=== PATIENT | female | born 1935 | race Caucasian/White ===

== ENCOUNTER 2016-09-14 12:53 | Outpatient (CLI) | payer MEDICARE | END 2016-09-14 12:54 | disposition home or self-care (01) | DX: E78.5 Hyperlipidemia, unspecified (principal); D75.89 Other specified diseases of blood and blood-forming organs ==

== ENCOUNTER 2016-09-25 08:47 | Emergency (ER) | payer MEDICARE | END 2016-09-25 10:52 | disposition home or self-care (01) | DX: R07.89 Other chest pain (principal); H53.8 Other visual disturbances; R03.0 Elevated blood-pressure reading, without diagnosis of hypertension; Z79.82 Long term (current) use of aspirin ==

== ENCOUNTER 2016-09-26 17:02 | Emergency (ER) | payer MEDICARE | END 2016-09-26 19:22 | disposition home or self-care (01) | DX: H53.8 Other visual disturbances (principal); R07.9 Chest pain, unspecified; R11.0 Nausea ==

== ENCOUNTER 2016-10-20 10:15 | Outpatient (CLI) | payer MEDICARE | END 2016-10-20 10:16 | disposition home or self-care (01) | DX: Z12.31 Encounter for screening mammogram for malignant neoplasm of breast (principal); Z85.3 Personal history of malignant neoplasm of breast ==

== ENCOUNTER 2016-12-19 09:25 | Outpatient (CLI) | payer MEDICARE ==
--- NOTE | 2016-12-19 16:01 | MRI Report ---
EXAM: MRI BRAIN WITHOUT CONTRAST EXAM DATE: 12/19/2016 10:47 AM. CLINICAL HISTORY: BLURRED VISION, HEADACHE. Prior history of breast cancer. COMPARISON: CT head 09/26/2016, MRI brain 03/09/2016 TECHNIQUE: Multiplanar, multisequence T1-weighted and fluid-sensitive MR sequences of the brain were performed. Sequences optimized for routine evaluation. Other: None. IV Contrast: None. FINDINGS: Brain Volume: Moderate diffuse cerebral and cerebellar volume loss with ex vacuo dilatation of the ve ntricles and sulci, appropriate for age. Parenchyma/Dura: No masses, infarcts, or hemorrhage. Extensive, semi-confluent T2/FLAIR hyperintense white matter lesions within periventricular, deep, and subcortical white matter of bilateral cerebral hemispheres as well as centrally within the jaylyn, overall similar to the prior study from 03/09/2016 . No parenchymal microhemorrhages. Ventricles/Cisterns: Moderate ex vacuo dilatation. No hydrocephalus. Sinuses: Normal. No sinusitis evident. Bones: Normal. Other: Status post bilateral lens replacement surgeries. The visualized orbits otherwise unremarkable . IMPRESSION: 1. No evidence of acute or subacute infarct, intracranial hemorrhage, mass, midline shift, or hydroce phalus. 2. Extensive, semi-confluent T2/FLAIR hyperintense white matter lesions within periventricular, deep, and subcortical white matter of bilateral cerebral hemispheres as well as centrally within the jaylyn, overall similar to the prior study from 03/09/2016. While nonspecific, this likely represents sequel a of chronic microangiopathy. 3. Moderate diffuse cerebral and cerebellar volume loss with ex vacuo dilatation of the ventricles an d sulci, appropriate for age. [facility] Referring Provider Line: [phone] SITE ID: [id number]
== END 2016-12-19 09:26 | disposition home or self-care (01) ==
LOC: DI 09:25
PROVIDERS: ATTEND Family Medicine
DX: R51 Headache (principal); H53.8 Other visual disturbances
CPT/HCPCS: 70551

== ENCOUNTER 2017-05-12 12:56 | Outpatient (CLI) | payer MEDICARE ==
[2017-05-12 12:42] LABS: BASOPHILS % (AUTO) 1.2 %; EOSINOPHILS # (AUTO) 0.1 10^3/uL (0.0-0.7); HCT - HEMATOCRIT 38.7 % (37.0-47.0); HGB - HEMOGLOBIN 13.4 g/dL (12.0-16.0); LYMPHOCYTES # (AUTO) 1.4 10^3/uL (1.5-3.5); LYMPHOCYTES % (AUTO) 38.1 %; MEAN CORPUSCULAR HEMOGLOBIN 34.9 pg (27.0-31.0); MEAN CORPUSCULAR HGB CONC 34.6 g/dL (32.0-36.0); MEAN CORPUSCULAR VOLUME 100.9 fL (81.0-99.0); MEAN PLATELET VOLUME 7.6 fL (7.9-10.8); MONOCYTES # (AUTO) 0.3 10^3/uL (0.0-1.0); NEUTROPHILS # (AUTO) 1.8 10^3/uL (1.5-6.6); NEUTROPHILS % (AUTO) 47.7 %; NUCLEATED RED BLOOD CELLS AUTO 0.1 /100WBC; RED BLOOD COUNT 3.83 10^6/uL (4.20-5.40); RED CELL DISTRIBUTION WIDTH 13.1 % (12.0-15.0); UNCORRECTED WHITE BLOOD COUNT 3.7 x10^3/uL; WHITE BLOOD COUNT 3.7 x10^3/uL (4.8-10.8)
[2017-05-12 13:04] LABS: ALBUMIN/GLOBULIN RATIO 1.4 (1.0-2.2); BILIRUBIN,TOTAL 0.7 mg/dL (0.2-1.0); CALCIUM 8.8 mg/dL (8.5-10.3); CREATININE 0.7 mg/dL (0.4-1.0); POTASSIUM 3.7 mmol/L (3.5-5.0); TOTAL PROTEIN 6.5 g/dL (6.7-8.2)
== END 2017-05-12 12:57 | disposition home or self-care (01) ==
LOC: LAB.WCP 12:56
PROVIDERS: ATTEND Family Medicine
DX: H53.8 Other visual disturbances (principal); R07.9 Chest pain, unspecified; I10 Essential (primary) hypertension
CPT/HCPCS: 36415; 80053; 85025

== ENCOUNTER 2017-06-08 09:20 | Outpatient (CLI) | payer MEDICARE ==
[~2017-06-08 09:20] MED LIST: GADOBUTROL 7.5 MMOL/7.5 ML VIAL ONE
[2017-06-08] MEDS ORDERED: GADOBUTROL 7.5 MMOL/7.5 ML VIAL IVP ONE (10:07)
--- NOTE | 2017-06-08 18:06 | MRI Preliminary Report ---
Exam: MRI BRAIN W/WO IMPRESSION: 1.Interval increase in thickness of a subdural fluid collection bilaterally 2. The subdural fluid collections could be posttraumatic in nature; however, the presence of smooth d ural thickening, decreased size of the lateral ventricles, and a lower limits normal distance between the mamillary bodies and upper jaylyn raise the possibility of intracranial hypotension as an etiology . 3. No enhancing mass is identified to suggest a breast cancer metastasis. 4. Foci of susceptibility are seen in the left parietal lobe. Given the history of subarachnoid hemor rhage this could reflect the sequelae of prior trauma. 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 5. Small vessel ischemic change is seen throughout the cerebral hemisphere white matter and in the ce ntral jaylyn. Preliminary report phoned to the ordering physician [facility] SITE ID: [id number]
--- NOTE | 2017-06-08 18:23 | MRI Report ---
EXAM: MRI BRAIN WITHOUT AND WITH CONTRAST EXAM DATE: 06/08/2017 09:25 AM. CLINICAL HISTORY: Subarachnoid hemorrhage. Right leg numbness since a stroke. History of breast cance r COMPARISON: CT head 05/24/2017. MRI brain 12/19/2016. TECHNIQUE: Multiplanar, multisequence T1-weighted and fluid-sensitive MR sequences of the brain were performed. Sequences optimized for routine evaluation. Other: None. IV Contrast: 5 mL Gadavist. FINDINGS: There is a FLAIR hyperintense subdural fluid collection overlying the left frontal lobe, which measur es up to 10 mm in thickness. A small component extends over these superior left temporal lobe. There is a FLAIR hyperintense subdural fluid collection overlying most of the frontal and parietal lobe on the right measuring up to 10 mm in thickness. On the comparison study, the right subdural fluid colle ction measured up to 5 mm in thickness and the left up to 6 mm in thickness. Ventricles are decreased in size. The distance between the superior jaylyn and mamillary body measures 5.[address] udy and is decreased. Subcortical and deep white matter FLAIR hyperintensities throughout the cerebral hemisphere white mat ter and FLAIR hyperintense signal in the central jaylyn are stable. Expected flow voids are seen in the major intracranial vessels at the skull base. A small amount of gyriform susceptibility is seen posteriorly in the left parietal cortex. A small fo cus of magnetic susceptibility is seen in the subcortical white matter of the medial left parietal lo be. No enhancing mass is identified in the brain parenchyma. Cavernous sinuses enhance in symmetric fashion. There is smooth dural thickening overlying the suprat entorial brain and involving the infratentorial brain as well. Expected enhancement is seen in the major dural venous sinuses. IMPRESSION: 1.Interval increase in a subdural fluid collection bilaterally. 2. The subdural fluid collections could be posttraumatic in nature; however, the presence of smooth d ural thickening, decreased size of the lateral ventricles, and a lower limits normal distance between the mamillary bodies and upper jaylyn raise the possibility of intracranial hypotension as an etiology . 3. No enhancing mass is identified to suggest a breast cancer metastasis. 4. Susceptibility is seen involving the left parietal lobe. Given the history of subarachnoid hemorrh age, this could reflect the sequelae of prior trauma. Cerebral amyloid angiopathy is in the different ial. 5. Small vessel ischemic change is seen throughout the cerebral hemisphere white matter and in the ce ntral jaylyn. Preliminary report phoned to the ordering physician. [facility] Referring Provider Line: [phone] SITE ID: [id number]
== END 2017-06-08 09:21 | disposition home or self-care (01) ==
LOC: DI 09:20 → EDUNIT# 09:20 → DI 09:21
PROVIDERS: ATTEND Family Medicine
DX: I62.9 Nontraumatic intracranial hemorrhage, unspecified (principal); I67.82 Cerebral ischemia
CPT/HCPCS: 70553; A9585

== ENCOUNTER 2017-10-12 08:23 | Outpatient (CLI) | payer MEDICARE ==
[2017-10-12 09:09] LABS: CALCIUM 9.2 mg/dL (8.5-10.3); CREATININE 0.7 mg/dL (0.4-1.0)
--- NOTE | 2017-10-12 14:40 | MRI Report ---
EXAM: MRI LUMBAR SPINE WITHOUT CONTRAST EXAM DATE: 10/12/2017 09:43 AM. CLINICAL HISTORY: Chronic low back pain, urinary incontinence. COMPARISON: Radiographs 11/04/2016. TECHNIQUE: Multiplanar, multisequence T1-weighted and fluid-sensitive sequences of the lumbar spine f rom T12 to S1 without contrast. Other: None. FINDINGS: Spinal Cord: The conus terminates at L1. The conus medullaris and cauda equina are unremarkable. Alignment: Prominent thoracolumbar curvature convex left and lower lumbar curvature convex right. Mil d right lateral subluxation T12 on L1. Left lateral subluxation L2 on L3. 2 mm anterior subluxation L 3 on L4. Bone Marrow: Five gui-wxr-tcykgum lumbar vertebral bodies are assumed. Heterogenous marrow signal. No acute fracture. No destructive bone lesion. Disk Levels/Facets: T12-L1: Small paracentral protrusions. Mild facet arthropathy. No significant stenosis. L1-L2: Annular disk bulge with broad-based central protrusion. Moderate facet arthropathy. No signifi cant stenosis. L2-L3: Disk height loss and dehydration. Annular disk bulge. Moderate degenerative facet arthropathy with ligamentum flavum buckling. Mild central canal stenosis. Mild left foraminal stenosis. L3-L4: Disk height loss. Annular disk old with broad-based central and left paracentral disk protrusi on. Minimal grade 1 spondylolisthesis. Moderate facet arthropathy. Mild central canal stenosis. Left lateral recess stenosis. Mild left foraminal stenosis. L4-L5: Disk height loss and dehydration. Annular disk bulge. Broad-based left foraminal disk protrusi on. Moderate degenerative facet arthropathy. Mild left foraminal stenosis. L5-S1: Disk height loss. Annular disk bulge and moderate facet arthropathy without significant stenos is. Musculature: Mild atrophy of the lower paraspinous musculature. Other: Unremarkable. IMPRESSION: 1. Multilevel lumbar degenerative disk and facet arthropathy. 2. L2-L3 mild central canal stenosis and mild left foraminal stenosis. 3. L3-L4 mild central canal stenosis. Mild left foraminal stenosis. 4. L4-L5 mild left foraminal stenosis. Comment: The following findings are so common in adults without low back pain that while we report th eir presence, they must be interpreted with caution and in the context of the clinical situation. (Re ene Rockwell et al, Spine 2001) Prevalence of findings in patients without low back pain: Disk degeneration (any evidence): 92% Disk desiccation/T2 signal loss: 83% Disk height loss: 56% Disk bulge: 64% Disk protrusion: 32% Annular tear/high intensity zone: 38% [facility] Referring Provider Line: [phone] SITE ID: [id number]
== END 2017-10-12 08:24 | disposition home or self-care (01) ==
LOC: DI 08:23
PROVIDERS: ATTEND Physician Assistant Medical
DX: M51.26 Other intervertebral disc displacement, lumbar region (principal); M51.36 Other intervertebral disc degeneration, lumbar region; M47.896 Other spondylosis, lumbar region; M51.37 Other intervertebral disc degeneration, lumbosacral region; M47.897 Other spondylosis, lumbosacral region; M43.16 Spondylolisthesis, lumbar region
CPT/HCPCS: 36415; 72148; 80048

== ENCOUNTER 2017-10-18 08:32 | Outpatient (CLI) | payer MEDICARE ==
[2017-10-18] MEDS ORDERED: GADOBUTROL 7.5 MMOL/7.5 ML VIAL IVP ONE (09:20)
--- NOTE | 2017-10-18 11:46 | MRI Report ---
EXAM: MRI BRAIN WITHOUT AND WITH CONTRAST EXAM DATE: 10/18/2017 09:23 AM. CLINICAL HISTORY: Intracranial hemorrhage follow-up. COMPARISON: 06/08/2017. TECHNIQUE: Multiplanar, multisequence T1-weighted and fluid-sensitive MR sequences of the brain were performed. Sequences optimized for routine evaluation. Other: None. IV Contrast: Yes. FINDINGS: Persistent but smaller broad-based subdural fluid collection over the left anterior cerebral convexit y, overall volume is significantly reduced, maximal width now 4 millimeters where previously 11 mm by the same method of measurement. Persistent but significantly smaller subdural fluid collection over the right cerebral convexity, now up to 5 mm in width over the right parietal lobe where previously the width is about 8 mm by the fredrick e method of measurement. Essentially complete interval clearing of interhemispheric fissure fluid/blood seen previously. There are findings of chronic hemosiderin staining on the surface of the left parietal lobe. No evidence for new or acute intracranial hemorrhage. Diffusion hyperintensity is present within the remaining subdural collections, this is likely from re sidual blood products. Infection is less likely. No evidence for new abnormal intracranial enhancement. Minimal dural thickening and enhancement is pr obably reactive secondary to resolving presumed subdural hematomas. No developing intracranial enhancing tumor mass. Contrast opacification of the major dural venous sin uses is present as expected. No evidence for acute intraparenchymal hemorrhage or acute ischemic infarct. Stable generalized age-related changes including extensive white matter disease that is likely second lissett to chronic microangiopathy. No developing hydrocephalus. No midline shift or brain herniation. The major arterial skull base flow voids are present. Symmetric unremarkable appearing orbits. IMPRESSION: 1. No MRI evidence for new or acute intracranial abnormality. 2. Persistent but significantly smaller bilateral cerebral convexity fluid collections consistent wit h sequelae of previous subdural hemorrhage. 3. Posterior interhemispheric fissure blood/fluid seen previously has cleared. [facility] Referring Provider Line: [phone] SITE ID: [id number]
== END 2017-10-18 08:33 | disposition home or self-care (01) ==
LOC: DI 08:32
PROVIDERS: ATTEND Physician Assistant Medical
DX: I62.9 Nontraumatic intracranial hemorrhage, unspecified (principal)
CPT/HCPCS: 70553; A9585

== ENCOUNTER 2018-01-14 07:03 | Outpatient (CLI) | payer MEDICARE ==
[2018-01-14 12:57] LABS: BASOPHILS % (AUTO) 1.3 %; EOSINOPHILS # (AUTO) 0.1 10^3/uL (0.0-0.7); EOSINOPHILS % (AUTO) 3.9 %; LYMPHOCYTES # (AUTO) 1.5 10^3/uL (1.5-3.5); LYMPHOCYTES % (AUTO) 42.3 %; MEAN CORPUSCULAR HEMOGLOBIN 35.3 pg (27.0-31.0); MEAN CORPUSCULAR HGB CONC 33.8 g/dL (32.0-36.0); MEAN CORPUSCULAR VOLUME 104.4 fL (81.0-99.0); MEAN PLATELET VOLUME 7.6 fL (7.9-10.8); MONOCYTES # (AUTO) 0.4 10^3/uL (0.0-1.0); MONOCYTES % (AUTO) 11.9 %; NEUTROPHILS # (AUTO) 1.4 10^3/uL (1.5-6.6); NEUTROPHILS % (AUTO) 40.6 %; PLT - PLATELET COUNT 222 10^3/uL (130-450); RED BLOOD COUNT 3.96 10^6/uL (4.20-5.40); RED CELL DISTRIBUTION WIDTH 13.3 % (12.0-15.0); WHITE BLOOD COUNT 3.4 x10^3/uL (4.8-10.8)
[2018-01-14 13:41] LABS: ALBUMIN 3.9 g/dL (3.2-5.5); ALBUMIN/GLOBULIN RATIO 1.3 (1.0-2.2); ALKALINE PHOSPHATASE 46 IU/L (42-121); ALT ALANINE AMINOTRANSFERASE 19 IU/L (10-60); AST ASPARTATE AMINOTRANSFERASE 23 IU/L (10-42); BILIRUBIN,TOTAL 0.9 mg/dL (0.2-1.0); BUN - BLOOD UREA NITROGEN 15 mg/dL (6-20); CALCIUM 8.9 mg/dL (8.5-10.3); CARBON DIOXIDE - CO2 28 mmol/L (21-32); CHLORIDE 101 mmol/L (101-111); CHOL/HDL RATIO 3.1 (<4.4); CHOLESTEROL 194 mg/dL; CREATININE 0.6 mg/dL (0.4-1.0); GFR - MDRD 96 (>89); GLUCOSE 96 mg/dL (70-100); HDL CHOLESTEROL 63 mg/dL; LDL CHOLESTEROL,CALCULATED 106 mg/dL; LDL/HDL RATIO 1.7 (<4.4); SODIUM 136 mmol/L (135-145); VLDL CHOLESTEROL 25 mg/dL
[2018-01-14 13:53] LABS: THYROID STIMULATING HORMONE 2.49 uIU/mL (0.34-5.60)
== END 2018-01-14 07:04 | disposition home or self-care (01) ==
LOC: LAB.WCP 07:03
PROVIDERS: ATTEND Physician Assistant Medical
DX: E78.5 Hyperlipidemia, unspecified (principal); R53.83 Other fatigue; M19.049 Primary osteoarthritis, unspecified hand
CPT/HCPCS: 36415; 80053; 80061; 82306; 82607; 83721; 84443; 85025

== ENCOUNTER 2018-03-25 10:52 | Outpatient (CLI) | payer MEDICARE ==
--- NOTE | 2018-03-29 10:09 | Mammography Report ---
Reason: SCREENING MAMMO Procedure Date: 03/25/2018 Accession Number: [id number] / [id number] Procedure: MGN - Screening Mammo Dig Bilat CPT Code: FULL RESULT: EXAM: Screening Mammo Dig Bilat DATE: 03/25/2018 11:15 AM CLINICAL HISTORY: Personal history of right breast cancer status post lumpectomy and radiation therapy, history of benign left breast biopsy, for screening TECHNIQUE: Bilateral CC and MLO views were obtained. COMPARISON: 10/20/2016, 09/23/2015, 08/08/2014 and 06/29/2013. FINDINGS: There are scattered fibroglandular densities. Posttreatment changes right breast are stable. No suspicious masses, clustered microcalcifications, or regions of architectural distortion are identified. IMPRESSION: Benign findings RECOMMENDATION: Routine annual screening unless otherwise clinically indicated. BIRADS CATEGORY 2: Benign findings STANDARD QUALIFYING STATEMENTS: 1. This examination was reviewed with the aid of Computer-Aided Detection (CAD). 2. A negative or benign imaging report should not delay biopsy if clinically suspicious findings are present. Consider surgical consultation if warrented. More than 5% of cancers are not identified by imaging. 3. Dense breasts may obscure an underlying neoplasm.
== END 2018-03-25 10:53 | disposition home or self-care (01) ==
LOC: DI.N 10:52
PROVIDERS: ATTEND Physician Assistant Medical
DX: Z12.31 Encounter for screening mammogram for malignant neoplasm of breast (principal); Z85.3 Personal history of malignant neoplasm of breast
CPT/HCPCS: 77067

== ENCOUNTER 2018-11-21 10:35 | Emergency (ER) | payer MEDICARE ==
--- NOTE | 2018-11-21 11:08 | ED Physician Documentation ---
PD HPI FOCAL NEURO - Stated complaint Stated Complaint: RIGHT SIDE PX UP TO HEAD - Chief complaint Chief Complaint: Neuro - History obtained from History obtained from: Patient, Family () - History of Present Illness Timing - onset: How many months ago (Progressing over several months.) Timing - details: Gradual onset Severity of deficit: Moderate Numbness: Face, Arm, Leg, Right Contributing factors: positive: Other (H/O ICH 1 1/2 years ago.) Baseline status: positive: A&OX3, ambulatory, indep - Additional information Additional information: Patient is an 82-year-old female who complains of progressive numbness on her right side. She has had numbness in her right leg for the past year and a half since an intracranial hemorrhage that occurred from a fall. Over the past 2 or 3 months the numbness has increased to involve her right upper extremity, with waxing and waning of severity. Yesterday she developed right facial numbness, which was new for her. She denies any focal weakness. She denies headache, nausea or vomiting, fever, or visual disturbance. She does report chronic right hip pain from degenerative joint disease, and is scheduled for orthopedic evaluation. Review of Systems Constitutional: denies: Fever Eyes: denies: Decreased vision Ears: denies: Tinnitus/ringing Nose: denies: Congestion Throat: denies: Sore throat Cardiac: denies: Chest pain / pressure Respiratory: denies: Dyspnea, Cough GI: denies: Abdominal Pain, Nausea, Vomiting : denies: Dysuria Skin: denies: Rash Musculoskeletal: reports: Joint pain (Right hip). denies: Neck pain, Back pain Neurologic: reports: Numbness (right side). denies: Focal weakness, Headache PD PAST MEDICAL HISTORY - Past Medical History Neuro: Other (intracranial hemorrhage) - Past Surgical History HEENT: Tonsil/Adenoidectomy - Present Medications Home Medications: Ambulatory Orders Medication Instructions Recorded Confirmed Venlafaxine [Effexor] 2 tab PO DAILY 09/25/16 05/24/17 clonazePAM [Clonazepam] 1 mg PO DAILY 09/25/16 05/24/17 - Allergies Allergies/Adverse Reactions: Allergies Allergy/AdvReac Type Severity Reaction Status Date / Time cephalexin monohydrate * Allergy Rash Verified 09/25/16 08:56 [From Keflex] - Social History Does the pt smoke?: No Smoking Status: Never smoker Does the pt drink ETOH?: Yes Does the pt have substance abuse?: No - Immunizations Immunizations are current?: Yes PD ED PE NORMAL - Vitals Vital signs reviewed: Yes (hypertensive) - General General: Alert and oriented X 3, Well developed/nourished - HEENT HEENT: Atraumatic, PERRL, EOMI, Pharynx benign - Neck Neck: Supple, no meningeal sign, No adenopathy, No JVD - Cardiac Cardiac: RRR - Respiratory Respiratory: No respiratory distress, Clear bilaterally - Abdomen Abdomen: Soft, Non tender - Back Back: No CVA TTP - Derm Derm: No rash - Extremities Extremities: No edema, No calf tenderness / cord - Neuro Neuro: Alert and oriented X 3, No motor deficit, Other (Decreased light touch sensation on the right lower extremity compared to the left. There is no sensory deficit detected on the right upper extremity or the face.) Results - Vitals Vitals: Vital Signs - 24 hr 11/21/18 11/21/18 11/21/18 10:38 10:54 11:16 Temperature 36.6 C Heart Rate 67 Respiratory 16 18 18 Rate Blood Pressure 165/91 H O2 Saturation 99 11/21/18 11/21/18 11/21/18 11:25 11:34 12:03 Temperature Heart Rate 61 68 64 Respiratory 11 L 16 13 Rate Blood Pressure 158/96 H 161/97 H O2 Saturation 100 97 100 11/21/18 11/21/18 12:32 13:52 Temperature Heart Rate 68 67 Respiratory 16 22 Rate Blood Pressure O2 Saturation 100 100 Oxygen O2 Source Room air - Labs Labs: Laboratory Tests 11/21/18 11/21/18 11/21/18 11:10 11:13 11:13 WBC 5.8 RBC 4.12 L Hgb 14.5 Hct 42.9 MCV 104.1 H MCH 35.1 H MCHC 33.8 RDW 12.9 Plt Count 274 MPV 7.2 L Neut # (Auto) 3.7 Lymph # (Auto) 1.5 Reeves # (Auto) 0.5 Eos # (Auto) 0.1 Baso # (Auto) 0.1 Absolute Nucleated RBC 0.00 Nucleated RBC % 0.0 Sodium 141 Potassium 4.0 Chloride 101 Carbon Dioxide 28 Anion Gap 12.0 BUN 17 Creatinine 0.6 Estimated GFR (MDRD) 96 Glucose 102 H Calcium 9.5 Total Bilirubin 0.9 AST 25 ALT 18 Alkaline Phosphatase 51 Total Protein 7.8 Albumin 4.5 Globulin 3.3 Albumin/Globulin Ratio 1.4 Lipase 27 Urine Color YELLOW Urine Clarity CLEAR Urine pH 6.5 Ur Specific [place] <=1.005 Urine Protein NEGATIVE Urine Glucose (UA) NEGATIVE Urine Ketones NEGATIVE Urine Occult Blood NEGATIVE Urine Nitrite NEGATIVE Urine Bilirubin NEGATIVE Urine Urobilinogen 0.2 (NORMAL) Ur Leukocyte Esterase NEGATIVE Ur Microscopic Review NOT INDICATED Urine Culture Comments NOT INDICATED - Rads (name of study) Head CT Radiology: Prelim report reviewed, EMP read contemporaneously, See rad report (1) No acute intracranial abnormality is identified. 2) Parenchymal volume loss and chronic white matter changes. 3) Slight progression of ventricular enlargement compared to 05/24/2017.) PD MEDICAL DECISION MAKING - ED course Complexity details: reviewed old records, reviewed results, re-evaluated patient, considered differential, d/w patient, d/w family ED course: The patient's presentation is significant for right sided paresthesias of chronic duration, but recently waxing and waning. She has history of int racranial hemorrhage 1 1/[address] today does not reveal any new intracranial abnormality. Her presentation does not suggest ischemic stroke. I discussed the results of the head CT with her and her . She has follow- up appointment scheduled with her primary physician 2 days from now. I discussed with her potentially worrisome signs or symptoms that should prompt reevaluation in the emergency department. Departure - Departure Disposition: 01 Home, Self Care Clinical Impression: Numbness on right side, History of intracranial hemorrhage Condition: Stable Instructions: ED Paraesthesias Follow-Up: Afshin Mcelroy MD [Provider Admit Priv/Credential] - Comments: Follow-up with Dr. Mcelroy in 2 days as scheduled. Return to the emergency department if increasing numbness or weakness, or otherwise worsening symptoms. Discharge Date/Time: 11/21/18 13:54
[2018-11-21 11:21] LABS: BASOPHILS # (AUTO) 0.1 10^3/uL (0.0-0.1); BASOPHILS % (AUTO) 0.9 %; EOSINOPHILS # (AUTO) 0.1 10^3/uL (0.0-0.7); HGB - HEMOGLOBIN 14.5 g/dL (12.0-16.0); LYMPHOCYTES # (AUTO) 1.5 10^3/uL (1.5-3.5); LYMPHOCYTES % (AUTO) 25.5 %; MEAN CORPUSCULAR HEMOGLOBIN 35.1 pg (27.0-31.0); MEAN CORPUSCULAR HGB CONC 33.8 g/dL (32.0-36.0); MEAN CORPUSCULAR VOLUME 104.1 fL (81.0-99.0); MEAN PLATELET VOLUME 7.2 fL (7.9-10.8); MONOCYTES # (AUTO) 0.5 10^3/uL (0.0-1.0); MONOCYTES % (AUTO) 8.7 %; NEUTROPHILS # (AUTO) 3.7 10^3/uL (1.5-6.6); NEUTROPHILS % (AUTO) 62.9 %; PLT - PLATELET COUNT 274 10^3/uL (130-450); RED BLOOD COUNT 4.12 10^6/uL (4.20-5.40); RED CELL DISTRIBUTION WIDTH 12.9 % (12.0-15.0); WHITE BLOOD COUNT 5.8 x10^3/uL (4.8-10.8)
[2018-11-21 11:22] LABS: BILIRUBIN,URINE NEGATIVE (NEGATIVE); GLUCOSE, URINE (UA) NEGATIVE (NEGATIVE); KETONES,URINE (UA) NEGATIVE (NEGATIVE); LEUKOCYTE ESTERASE, URINE NEGATIVE (NEGATIVE); NITRITE,URINE NEGATIVE (NEGATIVE); OCCULT BLOOD,URINE NEGATIVE (NEGATIVE); PH,URINE 6.5 PH (5.0-7.5); PROTEIN,URINE NEGATIVE (NEGATIVE); UROBILINOGEN,URINE 0.2 (NORMAL) E.U./dL (NORMAL)
[2018-11-21 11:23] LABS: CLARITY,URINE CLEAR (CLEAR)
[2018-11-21 11:34] LABS: ALBUMIN 4.5 g/dL (3.2-5.5); ALBUMIN/GLOBULIN RATIO 1.4 (1.0-2.2); BILIRUBIN,TOTAL 0.9 mg/dL (0.2-1.0); CALCIUM 9.5 mg/dL (8.5-10.3); CREATININE 0.6 mg/dL (0.4-1.0); TOTAL PROTEIN 7.8 g/dL (6.7-8.2)
[2018-11-21 11:35] VITALS: BP 161/97
--- NOTE | 2018-11-21 12:05 | CT Report ---
Reason: right sided numbness, progressing over several wks Procedure Date: 11/21/2018 Accession Number: [id number] / [id number] Procedure: CT - HEAD WO CPT Code: FULL RESULT: EXAM: CT HEAD EXAM DATE: 11/21/2018 11:59 AM. CLINICAL HISTORY: Right sided numbness, progressing over several wks. COMPARISON: HEAD W/O 05/24/2017 10:59 AM. TECHNIQUE: Multiaxial CT images were obtained from the foramen magnum to the vertex. Reformats: Sagittal and coronal. IV contrast: None. In accordance with CT protocol optimization, one or more of the following dose reduction techniques were utilized for this exam: automated exposure control, adjustment of mA and/or KV based on patient size, or use of iterative reconstructive technique. FINDINGS: Parenchyma: Parenchymal volume loss with periventricular regions of low attenuation. No definitive evidence of an acute vascular insult or acute parenchymal hemorrhage. No midline shift. No mass-effect. Extraaxial Spaces: Extra-axial spaces are prominent. No subdural or epidural collections identified. Ventricles: Prominent with progression compared to 05/24/2017. Sinuses and Orbits: Imaged paranasal sinuses, orbits, and mastoids show no significant abnormality. Bones: No evidence of fracture or calvarial defect. Other: Changes are seen from bilateral lens surgery. Vascular calcifications are noted. IMPRESSION: 1. No acute intracranial abnormality is identified. 2. Parenchymal volume loss and chronic white matter changes. 3. Slight progression of ventricular enlargement compared to 05/24/2017. [facility]
== END 2018-11-21 13:54 | disposition home or self-care (01) ==
LOC: ED 10:35
DX: R20.0 Anesthesia of skin (principal); Z86.79 Personal history of other diseases of the circulatory system; Z91.81 History of falling
CPT/HCPCS: 36415; 70450; 80053; 81001; 81003; 83690; 85025; 87086; 99283

== ENCOUNTER 2018-12-01 09:27 | Outpatient (CLI) | payer MEDICARE ==
[2018-12-01 11:16] LABS: HEMOGLOBIN A1C 0.51 g/dL; HEMOGLOBIN A1C % 5.5 % (4.6-6.2)
== END 2018-12-01 09:28 | disposition home or self-care (01) ==
LOC: LAB 09:27
PROVIDERS: ATTEND Orthopaedic Surgery
DX: Z01.818 Encounter for other preprocedural examination (principal); Z01.812 Encounter for preprocedural laboratory examination; N39.9 Disorder of urinary system, unspecified; R73.9 Hyperglycemia, unspecified
CPT/HCPCS: 36415; 83036; 93005

== ENCOUNTER 2020-01-30 10:15 | Emergency (ER) | payer MEDICARE ==
--- NOTE | 2020-01-30 11:17 | XRAY Report ---
PROCEDURE: Elbow 2 View LT INDICATIONS: injury to left elbow TECHNIQUE: 2 views of the elbow were acquired. COMPARISON: None FINDINGS: Bones: No fractures or dislocations. No suspicious bony lesions. Soft tissues: No elbow joint effusion. No suspicious soft tissue calcifications. IMPRESSION: No fracture. No osseous lesion. If there is continued clinical concern for pathology, then repeat juan in film radiographs (7-10 days) or advanced imaging (CT, MR, bone scan) should be considered for furt her evaluation. Reviewed by: Keyonna Escalante MD, PhD on 01/30/2020 11:15 AM PDT Approved by: Keyonna Escalante MD, PhD on 01/30/2020 11:15 AM PDT Station ID: [id number]
[2020-01-30] MEDS ORDERED: BACITRACIN ZINC OINT 1 PACKET TOP STA (11:30)
--- NOTE | 2020-01-30 11:38 | ED Physician Documentation ---
PD HPI UPPER EXT INJURY - Stated complaint Stated Complaint: LT ELBOW LAC - Chief complaint Chief Complaint: Laceration - History obtained from History obtained from: Patient - History of Present Illness Location: Left, Elbow Type of injury: Fall Where injury occurred: Home Timing - onset: Yesterday Timing - duration: Days (1) Timing - details: Gradual onset Pain level max: 1 Pain level now: 1 Improved by: Rest Worsened by: Moving, Palpating Associated symptoms: No: Weakness, Numbness, Tingling, Swelling Recently seen: Not recently seen - Additonal information Additional information: Small laceration of the left elbow after a fall yesterday. No bleeding today. Tetanus up-to-date Review of Systems Constitutional: denies: Fever, Chills Respiratory: denies: Cough GI: denies: Vomiting, Diarrhea Skin: denies: Rash Musculoskeletal: denies: Neck pain, Back pain Neurologic: denies: Focal weakness, Numbness, Headache PD PAST MEDICAL HISTORY - Past Medical History Past Medical History: Yes Neuro: Other - Past Surgical History Past Surgical History: Yes Ortho: Hip replacement HEENT: Tonsil/Adenoidectomy - Present Medications Home Medications: Ambulatory Orders Medication Instructions Recorded Confirmed Venlafaxine [Effexor] 2 tab PO DAILY 09/25/16 05/24/17 clonazePAM [Clonazepam] 1 mg PO DAILY 09/25/16 05/24/17 Bacitracin Zinc Oint 1 applic TOP BID #1 tube 01/30/20 - Allergies Allergies/Adverse Reactions: Allergies Allergy/AdvReac Type Severity Reaction Status Date / Time cephalexin monohydrate * Allergy Rash Verified 09/25/16 08:56 [From Keflex] - Social History Does the pt smoke?: No Smoking Status: Never smoker Does the pt drink ETOH?: Yes ETOH Use: Wine Does the pt have substance abuse?: No - Immunizations Immunizations are current?: Yes PD ED PE NORMAL - Vitals Vital signs reviewed: Yes - General General: Alert and oriented X 3, No acute distress - HEENT HEENT: Atraumatic, PERRL, Moist mucous membranes - Neck Neck: Supple, no meningeal sign - Cardiac Cardiac: RRR - Respiratory Respiratory: No respiratory distress, Clear bilaterally - Derm Derm: Warm and dry - Extremities Extremities: Other (L elbow - mild Tender to palpation over the olecranon process. 3 x 3 mm skin avulsion. Down to the fascia. Neurovascular intact.) - Neuro Neuro: Alert and oriented X 3 - Psych Psych: Normal mood, Normal affect Results - Vitals Vitals: Vital Signs - 24 hr 01/30/20 01/30/20 10:30 11:54 Temperature 36.3 C L 36.9 C Heart Rate 70 69 Respiratory 16 14 Rate Blood Pressure 122/73 123/75 O2 Saturation 98 100 Oxygen O2 Source Room air - Rads (name of study) L elbow xray Radiology: Prelim report reviewed, EMP read contemporaneously, See rad report (no acute abnormality) PD MEDICAL DECISION MAKING - ED course Complexity details: reviewed results, re-evaluated patient, considered differential, d/w patient ED course: No acute patient with a small skin avulsion to the left elbow. No acute findings on x-ray. Wound was cleansed and bandaged. Will allow to heal by secondary intention. Patient counseled regarding signs and symptoms for which I believe and urgent re-evaluation would be necessary. Patient with good understanding of and agreement to plan and is comfortable going home at this time This document was made in part using voice recognition software. While efforts are made to proofread this document, sound alike and grammatical errors may occur. Departure - Departure Disposition: 01 Home, Self Care Clinical Impression: Laceration of left elbow Qualifiers: Encounter type: initial encounter Qualified Code(s): S51.012A - Laceration without foreign body of left elbow, initial encounter Left elbow contusion Qualifiers: Encounter type: initial encounter Qualified Code(s): S50.02XA - Contusion of left elbow, initial encounter Condition: Good Instructions: ED Laceration All Follow-Up: Leopoldo Dangelo MD [Primary Care Provider] - Within 1 week Prescriptions: Bacitracin Zinc Oint 1 applic TOP BID #1 tube Comments: Keep the wound clean. Return if you worsen. Follow-up with your doctor this week for a wound check. Your x-ray does not show any abnormalities today. Discharge Date/Time: 01/30/20 11:55
[2020-01-30 11:55] VITALS: BP 123/75
== END 2020-01-30 11:55 | disposition home or self-care (01) ==
LOC: ED 10:15
DX: S51.012A Laceration without foreign body of left elbow, initial encounter (principal); S50.02XA Contusion of left elbow, initial encounter; W18.30XA Fall on same level, unspecified, initial encounter
CPT/HCPCS: 73070; 99283; 99284; A9270

== ENCOUNTER 2020-06-21 10:11 | Outpatient (CLI) | payer MEDICARE ==
[2020-06-21 10:44] LABS: BASOPHILS # (AUTO) 0.1 10^3/uL (0.0-0.1); BASOPHILS % (AUTO) 1.5 %; EOSINOPHILS # (AUTO) 0.1 10^3/uL (0.0-0.7); HGB - HEMOGLOBIN 13.2 g/dL (12.0-16.0); LYMPHOCYTES # (AUTO) 1.5 10^3/uL (1.5-3.5); LYMPHOCYTES % (AUTO) 31.4 %; MEAN CORPUSCULAR HEMOGLOBIN 35.1 pg (27.0-31.0); MEAN CORPUSCULAR VOLUME 106.4 fL (81.0-99.0); MEAN PLATELET VOLUME 9.1 fL (7.9-10.8); MONOCYTES # (AUTO) 0.5 10^3/uL (0.0-1.0); MONOCYTES % (AUTO) 11.4 %; NEUTROPHILS # (AUTO) 2.5 10^3/uL (1.5-6.6); NEUTROPHILS % (AUTO) 52.1 %; PLT - PLATELET COUNT 227 10^3/uL (130-450); RED BLOOD COUNT 3.76 10^6/uL (4.20-5.40); RED CELL DISTRIBUTION WIDTH 12.2 % (12.0-15.0); WHITE BLOOD COUNT 4.7 x10^3/uL (4.8-10.8)
[2020-06-21 10:49] LABS: CREATININE 0.5 mg/dL (0.4-1.0)
== END 2020-06-21 10:12 | disposition home or self-care (01) ==
LOC: LAB 10:11
PROVIDERS: ATTEND Orthopaedic Surgery
DX: Z01.818 Encounter for other preprocedural examination (principal); Z01.812 Encounter for preprocedural laboratory examination; I49.1 Atrial premature depolarization
CPT/HCPCS: 36415; 80048; 85025; 93005

== ENCOUNTER 2021-07-03 08:44 | Emergency (ER) | payer MEDICARE ==
[2021-07-03] MEDS ORDERED: SODIUM CHLORIDE 0.9% 1,000 ML IV STA (09:10)
[2021-07-03 09:27] LABS: BASOPHILS # (AUTO) 0.1 10^3/uL (0.0-0.1); BASOPHILS % (AUTO) 0.9 %; EOSINOPHILS # (AUTO) 0.1 10^3/uL (0.0-0.7); EOSINOPHILS % (AUTO) 0.8 %; HCT - HEMATOCRIT 39.1 % (37.0-47.0); HGB - HEMOGLOBIN 13.3 g/dL (12.0-16.0); LYMPHOCYTES # (AUTO) 1.1 10^3/uL (1.5-3.5); LYMPHOCYTES % (AUTO) 16.4 %; MEAN CORPUSCULAR HEMOGLOBIN 34.2 pg (27.0-31.0); MEAN CORPUSCULAR VOLUME 100.5 fL (81.0-99.0); MEAN PLATELET VOLUME 9.1 fL (7.9-10.8); MONOCYTES # (AUTO) 0.5 10^3/uL (0.0-1.0); NEUTROPHILS # (AUTO) 4.9 10^3/uL (1.5-6.6); NEUTROPHILS % (AUTO) 73.6 %; PLT - PLATELET COUNT 252 10^3/uL (130-450); RED BLOOD COUNT 3.89 10^6/uL (4.20-5.40); RED CELL DISTRIBUTION WIDTH 13.6 % (12.0-15.0); WHITE BLOOD COUNT 6.7 x10^3/uL (4.8-10.8)
[2021-07-03 09:44] LABS: ALBUMIN 4.2 g/dL (3.2-5.5); ALBUMIN/GLOBULIN RATIO 1.6 (1.0-2.2); BILIRUBIN,TOTAL 0.9 mg/dL (0.2-1.0); CALCIUM 9.4 mg/dL (8.5-10.3); CREATININE 0.6 mg/dL (0.4-1.0); POTASSIUM 2.9 mmol/L (3.5-5.0); TOTAL PROTEIN 6.9 g/dL (6.7-8.2)
--- NOTE | 2021-07-03 10:00 | ED Physician Documentation ---
History of Present Illness - Stated complaint Stated Complaint: DOES NOT FEEL RIGHT - Chief complaint Chief Complaint: General - History obtained from History obtained from: Patient - Additonal information Additional information: Patient comes emergency department chief complaint of insomnia and "not feeling right". She states that she has a longstanding history of insomnia and usually takes clonazepam at night for this. However, she states she ran out of her clonazepam and so for the last couple of nights, she has not been able to take it. She states she has been up all night and has felt exhausted since after the first night. The patient has had ongoing back and hip pain and 2 days ago, was given an injection by her independent living specialist. She is not sure what the injection was. She states this is helped the pain a lot, but having such a longstanding pain has also left her feeling just worn out. The patient denies any specific symptoms like fever or chills, nausea or vomiting, or dysuria. She has not had any loss of bowel or bladder control. No numbness or weakness in her lower extremities. She denies any chest pain or shortness of breath. No sick contacts. No new medications. No other complaints at this time. Review of Systems Ten Systems: 10 systems reviewed and negative Constitutional: reports: Fatigue Eyes: reports: Reviewed and negative Ears: reports: Reviewed and negative Nose: reports: Reviewed and negative Throat: reports: Reviewed and negative Cardiac: reports: Reviewed and negative Respiratory: reports: Reviewed and negative GI: reports: Reviewed and negative : reports: Reviewed and negative Skin: reports: Reviewed and negative Musculoskeletal: reports: Reviewed and negative Neurologic: reports: Reviewed and negative Psychiatric: reports: Reviewed and negative Endocrine: reports: Reviewed and negative Immunocompromised: reports: Reviewed and negative PD PAST MEDICAL HISTORY - Past Medical History Past Medical History: Yes Neuro: Other Musculoskeletal: Chronic back pain - Past Surgical History Past Surgical History: Yes Ortho: Hip replacement, Spine surgery HEENT: Tonsil/Adenoidectomy - Present Medications Home Medications: Ambulatory Orders Medication Instructions Recorded Confirmed Venlafaxine [Effexor] 2 tab PO DAILY 09/25/16 05/24/17 clonazePAM [Clonazepam] 1 mg PO DAILY 09/25/16 05/24/17 Bacitracin Zinc Oint 1 applic TOP BID #1 tube 01/30/20 Metoprolol Succinate [Toprol Xl] 25 mg PO DAILY #30 tablet 07/03/21 Potassium Chloride [K-Dur] 20 meq PO BIDWM #28 tablet 07/03/21 clonazePAM [Klonopin] 1 mg PO QPM #10 tablet 07/03/21 - Allergies Allergies/Adverse Reactions: Allergies Allergy/AdvReac Type Severity Reaction Status Date / Time cephalexin monohydrate * Allergy Rash Verified 07/03/21 09:00 [From Keflex] - Social History Does the pt smoke?: No Smoking Status: Never smoker Does the pt drink ETOH?: Yes Does the pt have substance abuse?: No - Immunizations Immunizations are current?: Yes PD ED PE NORMAL - Vitals Vital signs reviewed: Yes - General General: Alert and oriented X 3, No acute distress, Well developed/nourished - HEENT HEENT: Atraumatic, PERRL, EOMI, Moist mucous membranes - Neck Neck: Supple, no meningeal sign - Cardiac Cardiac: RRR, No murmur - Respiratory Respiratory: No respiratory distress, Clear bilaterally - Abdomen Abdomen: Soft, Non tender, Non distended - Back Back: No CVA TTP, No spinal TTP - Derm Derm: Normal color, Warm and dry, No rash - Extremities Extremities: No deformity, No edema, No calf tenderness / cord - Neuro Neuro: Alert and oriented X 3, 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, Normal speech - Psych Psych: Normal mood, Normal affect Results - Vitals Vitals: Vital Signs - 24 hr 07/03/21 07/03/21 07/03/21 08:55 11:00 11:05 Temperature 36.2 C L 36.6 C Heart Rate 114 H 112 H 68 Respiratory 16 16 Rate Blood Pressure 112/87 H 176/106 H 139/94 H O2 Saturation 100 98 07/03/21 07/03/21 11:10 11:15 Temperature Heart Rate 62 60 Respiratory 17 15 Rate Blood Pressure 123/86 H 137/80 H O2 Saturation 99 98 Oxygen O2 Source Room air - Labs Labs: Laboratory Tests 07/03/21 07/03/21 07/03/21 09:20 09:20 10:00 WBC 6.7 RBC 3.89 L Hgb 13.3 Hct 39.1 MCV 100.5 H MCH 34.2 H MCHC 34.0 RDW 13.6 Plt Count 252 MPV 9.1 Neut # (Auto) 4.9 Lymph # (Auto) 1.1 L [place] # (Auto) 0.5 Eos # (Auto) 0.1 Baso # (Auto) 0.1 Absolute Nucleated RBC 0.00 Nucleated RBC % 0.0 Sodium 142 Potassium 2.9 L Chloride 104 Carbon Dioxide 28 Anion Gap 10.0 BUN 12 Creatinine 0.6 Estimated GFR (MDRD) 95 Glucose 134 H Calcium 9.4 Total Bilirubin 0.9 AST 22 ALT 18 Alkaline Phosphatase 57 Total Protein 6.9 Albumin 4.2 Globulin 2.7 Albumin/Globulin Ratio 1.6 Lipase 18 L Urine Color STRAW Urine Clarity CLEAR Urine pH 7.0 Ur Specific [place] 1.010 Urine Protein NEGATIVE Urine Glucose (UA) NEGATIVE Urine Ketones NEGATIVE Urine Occult Blood NEGATIVE Urine Nitrite NEGATIVE Urine Bilirubin NEGATIVE Urine Urobilinogen 0.2 (NORMAL) Ur Leukocyte Esterase TRACE H Urine RBC None Seen Urine WBC 0-3 Urine WBC Clumps NONE SEEN Ur Epithelial Cells None Seen Ur Squamous Epith Cells RARE Squamous Urine Bacteria None Seen Ur Microscopic Review INDICATED Urine Culture Comments INDICATED PD MEDICAL DECISION MAKING - ED course Complexity details: reviewed results, re-evaluated patient, considered differential, d/w patient ED course: Patient overall was quite well-appearing, and I suspected that being off her clonazepam, which she is used to taking at night to help her sleep, was the main culprit in her insomnia. Her pain actually had improved since her injection, and she did not have any other symptoms or signs of illness. Her work-up was unremarkable, including labs and urinalysis. The patient was stable for discharge home. I have given her prescription for her clonazepam, so she can take it until her normal meds come in the mail. Departure - Departure Disposition: 01 Home, Self Care Clinical Impression: SVT (supraventricular tachycardia), Hypokalemia Insomnia Qualifiers: Insomnia type: unspecified Qualified Code(s): G47.00 - Insomnia, unspecified Condition: Stable Instructions: ED Potassium Deficiency, ED Tachycardia Pat PSVT, ED Insomnia Prescriptions: Potassium Chloride [K-Dur] 20 meq PO BIDWM #28 tablet clonazePAM [Klonopin] 1 mg PO QPM #10 tablet Metoprolol Succinate [Toprol Xl] 25 mg PO DAILY #30 tablet Comments: Overall, your labs look fairly good, with the exception of a moderately low potassium. Your heart rate has occasionally jumped high, and it appears you are intermittently going into a rhythm called SVT. This is not a dangerous rhythm as long as it is short lived. However, we do not want you to have a very fast heart rhythm for hours on end. Most likely, this is been the cause of the flutters that you have felt from time to time over the years. Often, these sorts of rhythm problems get worse if you have not had enough sleep. We have started you on a low-dose of the medication from the emergency department to help control your heart rhythm a little better. I will also refill your clonazepam so you can hopefully start getting some sleep again and allow everything to settle down and get you feeling back to your usual self. Your potassium was found to be low on your labs today, and this might also be part of the reason for you feeling "off". We have started you on supplements today, and will give you a couple weeks worth of supplements to take at home. You should call and schedule a follow-up appointment with your primary care physician, however, to have your potassium rechecked in about a week and make sure that it is coming up like it should. At that time, you should also discuss with your primary doctor whether you should continue on medicine for your heart rhythm, or whether you should go back to not have any medicine at all for this. Your doctor also may consider putting you back on an event monitor to see how often your heart beating fast, and whether you should see a clinical team manager in follow-up or not. If you go into a fast heartbeat that lasts for more than 30 minutes without stopping, you should return to the emergency department for recheck. You should also return if you experience chest pain, shortness of breath, or fainting in association with the fast heartbeat. Your prescriptions have been electronically transmitted to [facility] in [place].
[2021-07-03 10:20] LABS: BILIRUBIN,URINE NEGATIVE (NEGATIVE); GLUCOSE, URINE (UA) NEGATIVE (NEGATIVE); KETONES,URINE (UA) NEGATIVE (NEGATIVE); LEUKOCYTE ESTERASE, URINE TRACE (NEGATIVE); NITRITE,URINE NEGATIVE (NEGATIVE); OCCULT BLOOD,URINE NEGATIVE (NEGATIVE); PROTEIN,URINE NEGATIVE (NEGATIVE); UROBILINOGEN,URINE 0.2 (NORMAL) E.U./dL (NORMAL)
[2021-07-03] MEDS ORDERED: diltiaZEM INJ 5 MG/ML VIAL IVP STA (10:44)
[2021-07-03] MEDS ORDERED: clonazePAM 0.5 MG TABLET PO STA (10:45)
[2021-07-03] MEDS ORDERED: METOPROLOL 5 MG/5 ML VIAL IVP STA (10:45)
[2021-07-03 10:53] LABS: CLARITY,URINE CLEAR (CLEAR)
[2021-07-03 10:54] LABS: WBC,URINE 0-3 /HPF (0-5)
[2021-07-03 10:55] LABS: BACTERIA,URINE None Seen /HPF (None Seen); EPITHELIAL CELLS,UR None Seen /HPF (<= Few); RBC,URINE None Seen /HPF (0-5); SQUAMOUS EPITHELIAL CELL,UR RARE Squamous (<= Few); WBC CLUMPS,URINE NONE SEEN
[2021-07-03] MEDS ORDERED: METOPROLOL SUCCINATE 50 MG TABLET PO SCH (11:00)
[2021-07-03] MEDS ORDERED: METOPROLOL SUCCINATE 50 MG TABLET PO STA (11:00)
[2021-07-03] MEDS ORDERED: POTASSIUM CHLORIDE 20 MEQ TABLET PO STA (11:13)
[2021-07-03 12:03] VITALS: BP 136/92
== END 2021-07-03 12:20 | disposition home or self-care (01) ==
LOC: ED 08:44
DX: I47.1 Supraventricular tachycardia (principal); E87.6 Hypokalemia; G47.00 Insomnia, unspecified
CPT/HCPCS: 36415; 80053; 81001; 83690; 85025; 87086; 93005; 96361; 96374; 96375; 99283; 99284; A9270; 81003

== ENCOUNTER 2021-12-08 09:32 | Outpatient (CLI) | payer MEDICARE ==
[2021-12-08 10:15] LABS: ALBUMIN/GLOBULIN RATIO 1.4 (1.0-2.2); ALKALINE PHOSPHATASE 52 IU/L (42-121); ALT ALANINE AMINOTRANSFERASE 13 IU/L (10-60); AST ASPARTATE AMINOTRANSFERASE 16 IU/L (10-42); BILIRUBIN,TOTAL 1.1 mg/dL (0.2-1.0); BUN - BLOOD UREA NITROGEN 14 mg/dL (6-20); CALCIUM 8.9 mg/dL (8.5-10.3); CARBON DIOXIDE - CO2 31 mmol/L (21-32); CHLORIDE 100 mmol/L (101-111); CHOLESTEROL 195 mg/dL; CREATININE 0.6 mg/dL (0.4-1.0); GFR - MDRD 95 (>89); GLUCOSE 103 mg/dL (70-100); HDL CHOLESTEROL 64 mg/dL; LDL CHOLESTEROL,CALCULATED 120 mg/dL; LDL/HDL RATIO 1.9 (<4.4); POTASSIUM 3.2 mmol/L (3.5-5.0); SODIUM 140 mmol/L (135-145); TOTAL PROTEIN 6.8 g/dL (6.7-8.2); TRIGLYCERIDES 55 mg/dL; VLDL CHOLESTEROL 11 mg/dL
== END 2021-12-08 09:33 | disposition home or self-care (01) ==
LOC: LAB 09:32
PROVIDERS: ATTEND Internal Medicine
DX: E78.5 Hyperlipidemia, unspecified (principal)
CPT/HCPCS: 36415; 80053; 80061; 83721